=== PATIENT | female | born 1985 | race Caucasian/White ===

== ENCOUNTER 2022-08-29 18:54 | Emergency (ER) | payer MEDICAID, OTHER ==
[~2022-08-29] VITALS: Ht 162.6 cm; Wt 77.1 kg
[2022-08-29 22:00] VITALS: BP 115/61
[2022-08-29] MEDS ORDERED: NAPR-1009 PO (22:09)
[2022-08-29] MEDS ORDERED: CYCL10TA9 PO (22:09)
--- NOTE | 2022-08-29 22:16 | NUR ---
Patient discharged to home in stable condition. Written and verbal after care instructions given. Patient verbalizes understanding of instruction.
== END 2022-08-29 22:17 | disposition home or self-care (01) ==
LOC: ER 18:59
DX: S16.1XXA Strain of muscle, fascia and tendon at neck level, initial encounter (principal); M62.830 Muscle spasm of back; R20.2 Paresthesia of skin; R51.9 Headache, unspecified; V49.9XXA Car occupant (driver) (passenger) injured in unspecified traffic accident, initial encounter; Y93.89 Activity, other specified; Y92.488 Other paved roadways as the place of occurrence of the external cause; Y99.8 Other external cause status
CPT/HCPCS: 72125-TC; 84703-TC